=== PATIENT | male | born 1975 | race Caucasian/White ===

== ENCOUNTER 2020-03-11 14:07 | Emergency (ER) | payer OTHER, SELFPAY ==
[2020-03-11 14:14] VITALS: BP 131/85; PULSE 85; RESP 14; TEMP 36.9; O2SAT 98; BMI 24.4
[2020-03-11] MEDS: DOXYCYCLINE HYCLATE 100 MG TABLET 200 MG PO (16:49)
[2020-03-11] MEDS: TET,DIPH,PERTUSS(ACELL),VAC/PF 0.5 ML SYRINGE IM (16:49)
--- NOTE | 2020-03-11 18:30 | ED.ANIMALBIT ---
HPI - Animal Bite <BERNICE Samayoa - Last Filed: 03/11/20 18:34> General Chief Complaint: Animal Bite Stated Complaint: tick on head that needs to be removed Time Seen by Provider: 03/11/20 16:03 Source: patient Mode of arrival: Ambulatory Limitations: no limitations History of Present Illness HPI narrative: The patient is 44-year-old male nonsmoker who denies pertinent medical history presents with a chief complaint of a possible tick bite to the back of his head. He thinks he might have removed it. He states it was a deer tick, attached for at least 4 days. States overall he feels okay down, denies any fevers nausea vomiting or diarrhea. Does not know when his last tetanus shot was. Related Data Allergies Allergy/AdvReac Type Severity Reaction Status Date / Time No Known Drug Allergies Allergy Verified 03/11/20 14:14 Review of Systems <BELEN Samayoa - Last Filed: 03/11/20 18:34> Review of Systems Narrative: GENERAL: Denies chills, fatigue, malaise, fever, sweats. HEENT: Denies sinus pain, ear pain, sore throat, difficulty swallowing, dizziness. RESPIRATORY: Denies dyspnea, cough, wheezing, hemoptysis, sputum. CARDIOVASCULAR: Denies chest pain, palpitations, orthopnea, edema, GASTROINTESTINAL: Denies nausea, vomiting, abdominal pain, diarrhea, constipation, melena. : Denies dysuria, frequency, incontinence, hematuria, urinary retention. MUSCULOSKELETAL: denies weakness, joint pain, or bony pain SKIN: See HPI NEUROLOGIC: Denies weakness, headache, numbness, change in speech, confusion, seizures, incoordination. PSYCHIATRIC: No concerning psychosocial issues. 12 point review of systems is negative except for those stated above Patient History <BERNICE Samayoa - Last Filed: 03/11/20 18:34> Social History Smoking Status: Unknown if ever smoked Smoking Status: Unknown if ever smoked alcohol intake frequency: holidays/special occasions only Substance Use Type: does not use Exam <BERNICE Samayoa - Last Filed: 03/11/20 18:34> Narrative Exam Narrative: GENERAL: This is a well-nourished, well-developed patient, in no acute distress HEAD: Atraumatic. Normocephalic. No temporal or scalp tenderness. EYES: Pupils equal round and reactive. Extraocular motions intact. No scleral icterus. No injection or drainage. ENT: Nose without bleeding, purulent drainage or septal hematoma. Wearing a mask. Airway patent. NECK: Trachea midline. No JVD or lymphadenopathy. Supple, nontender, no meningeal signs. CARDIOVASCULAR: Regular rate and rhythm RESPIRATORY: No cough. No increased respiratory effort for no accessory muscle use.. EXTREMITIES: Using all extremities equally. Stable gait. BACK: Nontender without deformity or crepitance. No flank tenderness. NEURO: AOx3. SKIN: Small red spot noted on ossified back of head, 2 x 2 mm. No obvious insect or insect residue. Initial Vital Signs Initial Vital Signs: Vital Signs Temperature 98.4 F 03/11/20 14:14 Pulse Rate 85 03/11/20 14:14 Respiratory Rate 14 03/11/20 14:14 Blood Pressure 131/85 03/11/20 14:14 Pulse Oximetry 98 03/11/20 14:14 <Leslye Domínguez DO - Last Filed: 03/12/20 07:41> Initial Vital Signs Initial Vital Signs: Vital Signs Temperature 98.4 F 03/11/20 14:14 Pulse Rate 85 03/11/20 14:14 Respiratory Rate 14 03/11/20 14:14 Blood Pressure 131/85 03/11/20 14:14 Pulse Oximetry 98 03/11/20 14:14 Scores <BERNICE Samayoa - Last Filed: 03/11/20 18:34> GCS Jacklyn coma scale eye opening: Spontaneous [place] coma scale verbal response: Orientated [place] coma scale motor response: Obey commands [place] coma scale total score: 15 Course <BERNICE Samayoa - Last Filed: 03/11/20 18:34> Orders Ordered: Discontinued Medications Diphtheria/Tetanus/Acell Pertussis (Adacel) 0.5 ml IM .ONCE ONE Stop: 03/11/20 16:39 Last Admin: 03/11/20 16:49 Dose: 0.5 ml Documented by: ELGIN Doxycycline Hyclate (Vibramycin) 200 mg PO NOW ONE Stop: 03/11/20 16:39 Last Admin: 03/11/20 16:49 Dose: 200 mg Documented by: RMARTIN Vital Signs Vital signs: Vital Signs - 8 hr 03/11/20 14:14 Temperature 98.4 F Pulse Rate 85 Respiratory Rate 14 Blood Pressure 131/85 Pulse Oximetry 98 <Leslye Domínguez DO - Last Filed: 03/12/20 07:41> Orders Ordered: Discontinued Medications Diphtheria/Tetanus/Acell Pertussis (Adacel) 0.5 ml IM .ONCE ONE Stop: 03/11/20 16:39 Last Admin: 03/11/20 16:49 Dose: 0.5 ml Documented by: ELGIN Doxycycline Hyclate (Vibramycin) 200 mg PO NOW ONE Stop: 03/11/20 16:39 Last Admin: 03/11/20 16:49 Dose: 200 mg Documented by: ELGIN Vital Signs Vital signs: Vital Signs - 8 hr 03/11/20 14:14 Temperature 98.4 F Pulse Rate 85 Respiratory Rate 14 Blood Pressure 131/85 Pulse Oximetry 98 MDM - Animal Bite <BERNICE Samayoa - Last Filed: 03/11/20 18:34> MDM Narrative Medical decision making narrative: The patient is a 44-year-old male who presents with a chief complaint of a possible tick bite on the back of his head. He does not have any obvious tick or tick residue. However given that the tick was reported to be a deer tick an attached for several days, will treat prophylactically with 200 mg p.o. doxycycline as per up-to-date recommendations. Tetanus also updated. Encouraged follow-up with primary care provider and symptom monitoring. Patient has no questions or concerns upon discharge and states understanding return precautions as well as follow-up care. Discharge Plan Departure Patient Disposition: Home Clinical Impression: Tick bite of head Qualifiers: Encounter type: initial encounter Qualified Code(s): S00.96XA - Insect bite (nonvenomous) of unspecified part of head, initial encounter Discharge Date/Time: 03/11/20 17:31 Instructions: How to Remove a Tick, DI for Insect Bites and Stings, Protect Yourself from Tickborne Illnesses Activity Restrictions/Additional Instructions: Thank you for trusting us with your care Please follow-up with primary care provider in the next few days. Please monitor for fevers, fatigue and any other signs of tick-borne illness Today we updated your tetanus and gave you prophylactic dose of doxycycline. As discussed, please wear sunscreen. Please eat probiotics or yogurt over the next few days to help prevent antibiotic associated diarrhea <Leslye Domínguez, DO - Last Filed: 03/12/20 07:41> Cosign ED Attending Cosignature Attestation: I was immediately available in the department for consultation. Documentation has been reviewed. I agree with assessment and plan.
== END 2020-03-11 17:31 | disposition home or self-care (01) ==
PROVIDERS: Emergency Provider Nurse Practitioner Family
DX: S00.06XA Insect bite (nonvenomous) of scalp, initial encounter (principal); Z23 Encounter for immunization
CPT/HCPCS: 90471; 99283; 90715